=== PATIENT | female | born 1930 | race Caucasian/White ===

== ENCOUNTER 2018-06-30 10:51 | Emergency (ER) | payer BC, OTHER ==
[2018-06-30 11:55] LABS: PLATELET COUNT 243 10^3/uL (150-400)
--- NOTE | 2018-06-30 12:00 | EDPHY ---
H & P Stated Complaint: Painful hematuria x 1 wk, no Hx, low appetite. - Personal History Current Tetanus/Diphtheria Vaccine: Unsure - Medical/Surgical History Hx Asthma: No Hx Chronic Respiratory Disease: No Hx Diabetes: No Hx Cardiac Disease: No Hx Renal Disease: No Hx Cirrhosis: No Hx Alcoholism: No Hx HIV/AIDS: No Hx Splenectomy or Spleen Trauma: No Other PMH: Femur/pelvis Fx c hardware, colostomy, angioplasty x1 stent. 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 Patient arrived in [place] 2 weeks ago and for the past 2 weeks has been experiencing fever, abdominal pain, intermittent confusion, increased frequency, dysuria, hematuria. 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 Cardiac stenting. No anticoagulant use. SOCIAL HISTORY: Nonsmoker. Visiting from [place], in the area indefinitely living with family PHYSICAL EXAM (Prior to examination, patient consented to physical exam, hands were washed and my usual and customary physical exam procedures followed) 1) GENERAL: Well-developed, well-nourished, alert and oriented. Appears nontoxic 2) HEAD: Normocephalic, atraumatic 3) HEENT: Pupils equal, round, reactive to light bilaterally. Sclera anicteric. Nasopharynx, oropharynx, clear, no lesions. Dry mucous membranes. 4) NECK: Full range of motion, no meningeal signs. 5) LUNGS: Clear auscultation bilaterally, no wheezes, no rhonchi, no retractions. 6) HEART: Regular rate and rhythm, no murmur, no heave, no gallop. 7) ABDOMEN: Colostomy patent. Tender to palpation left lower quadrant. 8) MUSCULOSKELETAL: Moving all extremities, no focal areas of tenderness, no obvious trauma. No peripheral edema or discoloration. 9) BACK: No CVA tenderness, no midline vertebral tenderness, no fluctuance, no step-off, no obvious trauma, no visual or palpable abnormality. 10) SKIN: No rash, no petechiae. 11) Psychiatric: Patient is oriented X 3, there is no agitation. 12) (with female cooling tower technician Elsy at bedside): Normal female external genitalia and no signs of trauma or cellulitis, no irritation. DIFFERENTIAL DIAGNOSIS: In no particular order including but not limited to diverticulitis, nephrolithiasis, pyelonephritis (Ilya Bernardo Janneth) Constitutional: Initial Vital Signs Temperature (C) 36.7 C 06/30/18 10:57 Heart Rate 54 L 06/30/18 10:57 Respiratory Rate 18 06/30/18 10:57 Blood Pressure 168/71 H 06/30/18 10:57 O2 Sat (%) 98 06/30/18 10:57 O2 Delivery Mode Room Air Allergies/Adverse Reactions: Sulfa (Sulfonamide Antibiotics) Allergy (Verified 06/30/18 10:56) Home Medications: Medication Instructions Recorded Acetaminophen [Tylenol 325mg (*)] 650 mg PO Q4HRS PRN tab 06/30/18 Fenofibrate,Micronized 134 mg PO DAILY 06/30/18 [Fenofibrate] Metoprolol Tartrate [Lopressor 50 50 mg PO BID 06/30/18 mg (*)] Multivitamins [Multivitamin (*)] 1 each PO DAILY 06/30/18 Simvastatin [Zocor] 40 mg PO HS 06/30/18 Medical Decision Making - Diagnostics Imaging Results: Imaging Impressions Abdomen CT 06/30/18 12:18 Impression: 1. No obstructing ureteral calculus, CT evidence of pyelonephritis or perinephric fluid collection. 2. Right nephrolithiasis and numerous bladder calculi. 3. Mild biliary dilation is likely the patient's postcholecystectomy state. 4. Bowel pattern and right abdominal colostomy are within normal limit. 5. No localized acute intra-abdominal inflammatory process. Findings discussed with Emergency Department physician, Liam Bernardo PA-C on June 30, 2018 at 1310 hours. Images reviewed myself (Ilya Bernardo Janneth) ED Course/Re-evaluation: I did not see this patient while she was in the emergency department. However her care was discussed with the PA while the patient was in the department. I agree with treatment plan management (Wyatt Simental) Patient was re-examined with serial examinations the ER. CT imaging was performed given location of her pain to evaluate for acute surgical abdominal pathology. Subsequently the CT was read out as showing multiple bladder calculi with no evidence of obstruction. The patient remains complaining of abdominal pain. Family expresses there discomfort being discharged home. Will plan on admission to hospitalist service for abdominal pain, bladder calculi, will plan on consultation with Urology given her multiple bladder calculi as well. 1:51 p.m.: Consultation with Julieth hospitalist admit to Dr. Mayer 2 pm: Consultation with urology Dr Dayo Arce who agrees to consult 3:46 p.m.: Informed at this time that after patient had been evaluated by the urology PA Ariela Emerson and hospitalist service Dr. Natasha Mayer the patient has decided to leave. Patient was previously told that she may follow up with Dr. Jeremiah Rosenthal and she has been given this referral information. ( Ilya Bernardo) - Data Points Laboratory Results: Laboratory Results 06/30/18 11:42 06/30/18 11:42 06/30/18 06/30/18 06/30/18 12:31 11:49 11:42 WBC RBC Hgb POC Hgb 16.0 gm/dL gm/dL (12.6-16.3) Hct POC Hct 47 % % (38-47) MCV MCH MCHC RDW Plt Count MPV Neut % (Auto) Lymph % (Auto) [place] % (Auto) Eos % (Auto) Baso % (Auto) Nucleat RBC Rel Count Absolute Neuts (auto) Absolute Lymphs (auto) Absolute Monos (auto) Absolute Eos (auto) Absolute Basos (auto) Absolute Nucleated RBC Immature Gran % Immature Gran # POC Sodium 142 mEq/L mEq/L (135-145) Sodium 140 mEq/L mEq/L (135-145) POC Potassium 4.3 mEq/L mEq/L (3.3-5.0) Potassium 4.8 mEq/L mEq/L (3.3-5.0) POC Chloride 107 mEq/L mEq/L (97-110) Chloride 106 mEq/L mEq/L (97-110) Carbon Dioxide 24 mEq/l mEq/l (22-31) Anion Gap 10 mEq/L mEq/L (6-14) POC BUN 23 mg/dL mg/dL (7-23) BUN 21 mg/dL mg/dL (7-23) Creatinine 0.9 mg/dL mg/dL (0.6-1.0) POC Creatinine 0.9 mg/dL mg/dL (0.6-1.0) Estimated GFR 59 Glucose 75 mg/dL mg/dL (70-100) POC Glucose 76 mg/dL mg/dL (70-100) Calcium 10.2 mg/dL mg/dL (8.5-10.4) Total Bilirubin 0.6 mg/dL mg/dL (0.1-1.4) Conjugated Bilirubin 0.2 mg/dL mg/dL (0.0-0.5) Unconjugated Bilirubin 0.4 mg/dL mg/dL (0.0-1.1) AST 38 IU/L IU/L (14-46) ALT 25 IU/L IU/L (9-52) Alkaline Phosphatase 79 IU/L IU/L (38-126) Total Protein 7.4 g/dL g/dL (6.3-8.2) Albumin 4.2 g/dL g/dL (3.5-5.0) Lipase 116 IU/L IU/L (23-300) Urine Color YELLOW Urine Appearance HAZY Urine pH 5.0 (5.0-7.5) Ur Specific [place] 1.017 (1.002-1.030) Urine Protein NEGATIVE (NEGATIVE) Urine Ketones NEGATIVE (NEGATIVE) Urine Blood NEGATIVE (NEGATIVE) Urine Nitrate NEGATIVE (NEGATIVE) Urine Bilirubin NEGATIVE (NEGATIVE) Urine Urobilinogen NEGATIVE EU EU (0.2-1.0) Ur Leukocyte Esterase NEGATIVE (NEGATIVE) Urine RBC 1-3 /hpf /hpf (0-3) Urine WBC 1-3 /hpf /hpf (0-3) Ur Epithelial Cells TRACE /lpf /lpf (NONE-1+) Hyaline Casts 5-15 /lpf /lpf (0-1) Urine Mucus TRACE /lpf /lpf (NONE-1+) Urine Glucose NEGATIVE (NEGATIVE) 06/30/18 11:42 WBC 6.94 10^3/uL 10^3/uL (3.80-9.50) RBC 5.03 10^6/uL 10^6/uL (4.18-5.33) Hgb 14.8 g/dL g/dL (12.6-16.3) POC Hgb Hct 45.5 % % (38.0-47.0) POC Hct MCV 90.5 fL fL (81.5-99.8) MCH 29.4 pg pg (27.9-34.1) MCHC 32.5 g/dL g/dL (32.4-36.7) RDW 13.9 % % (11.5-15.2) Plt Count 243 10^3/uL 10^3/uL (150-400) MPV 11.1 fL fL (8.7-11.7) Neut % (Auto) 63.3 % % (39.3-74.2) Lymph % (Auto) 28.1 % % (15.0-45.0) [place] % (Auto) 8.1 % % (4.5-13.0) Eos % (Auto) 0.1 % L % (0.6-7.6) Baso % (Auto) 0.1 % L % (0.3-1.7) Nucleat RBC Rel Count 0.0 % % (0.0-0.2) Absolute Neuts (auto) 4.39 10^3/uL 10^3/uL (1.70-6.50) Absolute Lymphs (auto) 1.95 10^3/uL 10^3/uL (1.00-3.00) Absolute Monos (auto) 0.56 10^3/uL 10^3/uL (0.30-0.80) Absolute Eos (auto) 0.01 10^3/uL L 10^3/uL (0.03-0.40) Absolute Basos (auto) 0.01 10^3/uL L 10^3/uL (0.02-0.10) Absolute Nucleated RBC 0.00 10^3/uL 10^3/uL (0-0.01) Immature Gran % 0.3 % % (0.0-1.1) Immature Gran # 0.02 10^3/uL 10^3/uL (0.00-0.10) POC Sodium Sodium POC Potassium Potassium POC Chloride Chloride Carbon Dioxide Anion Gap POC BUN BUN Creatinine POC Creatinine Estimated GFR Glucose POC Glucose Calcium Total Bilirubin Conjugated Bilirubin Unconjugated Bilirubin AST ALT Alkaline Phosphatase Total Protein Albumin Lipase Urine Color Urine Appearance Urine pH Ur Specific [place] Urine Protein Urine Ketones Urine Blood Urine Nitrate Urine Bilirubin Urine Urobilinogen Ur Leukocyte Esterase Urine RBC Urine WBC Ur Epithelial Cells Hyaline Casts Urine Mucus Urine Glucose Medications Given: Discontinued Medications Fentanyl (Sublimaze) 50 mcg IVP EDNOW ONE Stop: 06/30/18 12:34 Last Admin: 06/30/18 13:05 Dose: 50 mcg Ondansetron HCl (Zofran) 4 mg IVP EDNOW ONE Stop: 06/30/18 13:05 Last Admin: 06/30/18 13:05 Dose: 4 mg Point of Care Test Results: Chemistry 06/30/18 11:49 POC Sodium 142 mEq/L mEq/L (135-145) POC Potassium 4.3 mEq/L mEq/L (3.3-5.0) POC Chloride 107 mEq/L mEq/L (97-110) POC BUN 23 mg/dL mg/dL (7-23) POC Creatinine 0.9 mg/dL mg/dL (0.6-1.0) POC Glucose 76 mg/dL mg/dL (70-100) ISTAT H&H 06/30/18 11:49 POC Hgb 16.0 gm/dL gm/dL (12.6-16.3) POC Hct 47 % % (38-47) Departure - Departure Disposition: [facility] Inpatient Acute Clinical Impression: Bladder calculi Condition: Fair
[2018-06-30] MEDS ORDERED: IOPAMIDOL (ISOVUE-300) 100 ML BTL ONE (12:24)
[2018-06-30] MEDS ORDERED: fentaNYL 100 MCG/2 ML INJ IVP ONE (12:33)
[2018-06-30] MEDS ORDERED: ONDANSETRON 4 MG/2 ML VIAL ONE (13:00)
[2018-06-30] MEDS ORDERED: ONDANSETRON 4 MG/2 ML VIAL IVP ONE (13:04)
[2018-06-30] MEDS ORDERED: ACETAMINOPHEN 325 MG TAB PO PRN (14:29)
[2018-06-30] MEDS ORDERED: ONDANSETRON 4 MG/2 ML VIAL IVP PRN (14:29)
[2018-06-30] MEDS ORDERED: ONDANSETRON DISINTEGRATING 4 MG TAB PO PRN (14:29)
[2018-06-30 15:55] VITALS: BP 118/47
--- NOTE | 2018-06-30 16:10 | GDS ---
Please see full H and P for assessment and plan full A&P, discharge plan. Patient and family declined admission. /[id number]/MODL MTDD
--- NOTE | 2018-06-30 16:30 | GCON ---
DATE OF CONSULTATION: 06/30/2018 REASON FOR CONSULT: Abdominal pain, bladder stones. HISTORY OF PRESENT ILLNESS: 88-year-old female who was seen in our office on June 22, evaluated for bladder stones, found to have them. She was having symptoms and was to be set up for surgery. However, she is visiting from [place]. Her insurance company has stated that they will only cover h er in [place]. This was discussed with the patient and they at that point elected to pursue care in her home state rather than [id number] here. However, the daughter reports that the patient was having more abdominal pain, passing blood in her urine and clots, and a temperature of 101, and she b rought her into the emergency room. Denying chills, nausea, or vomiting. PAST MEDICAL HISTORY: Chronic cystitis, bladder stones, colitis, diabetes mellitus, heart disease, h igh cholesterol, urethral stricture. MEDICATIONS: Fenofibrate, metformin, metoprolol, simvastatin. ALLERGIES: Sulfa. PAST SURGICAL HISTORY: Colectomy for cystitis, ORIF, angioplasty. SOCIAL HISTORY: Current alcohol use. Children, daughter, and granddaughter in room. Denies illicit drug use. Homemaker. Lives in [place], visiting here. Former tobacco smoker. She is a . S he had a CT scan done at the hospital that shows air in her colostomy bag along with multiple small b ladder stones. PHYSICAL EXAM: VITAL SIGNS: 129/62 blood pressure, heart rate 65, respiratory rate 16, O2 94 on sarah ebth m air, temperature 36.7. GENERAL: This is a well-developed, well-nourished female, in no acute dist ress. HEENT: Normocephalic, atraumatic. Extraocular movements intact. NECK: Supple. No lymphade nopathy. Trachea midline. RESPIRATORY: No accessory respiratory muscle use. CARDIAC: Regular rat e and rhythm. No lower extremity edema. No obvious JVD. ABDOMEN: Soft, nondistended. Diffusely t phani to palpation. Ostomy bag in place. : No CVA tenderness. Diffuse suprapubic tenderness. D iffuse tenderness on vaginal exam without obvious lesions or masses. INTEGUMENT: No obvious rashes or lesions. MUSCULOSKELETAL: Patient is examined while supine, moving upper extremities without dif ficulty. NEUROLOGIC: Alert, oriented. Affect appropriate to situation. LABORATORY DATA: White blood cell count is 6.94, hemoglobin 14.8, hematocrit 45.5, platelets 243. C hemistry: Sodium 140, potassium 4.8, chloride 106, carbon dioxide 24, anion gap 10, BUN 21, creatini ne 0.9, glucose 75, calcium 10.2. Her urinalysis is totally negative for everything. Microbiology i s pending on her, along with blood cultures. She also had a cystoscopy done in our office by Dr. Dipika sherwood on 06/22/2018, that showed multiple bladder calculi, largest was about 1 to 1.5 cm in diameter, a long with stenosed urethra. CT scan and cystoscopy done on 06/22/2018, in our office reviewed as men tioned. ASSESSMENT AND PLAN: Bladder stones, diffuse bladder and vaginal pain. Unfortunately, this patient has an insurance plan that has specifically told us she is not covered for care out of the [facility]. We have offered patient care regardless of insurance and this has been declined in the offi ce. At this point, we recommend patient pursue outpatient cystoscopy for removal of bladder stones w rajendra Rosenthal feels may be feasible in the office for this nonemergent issue in this otherwise stabl e appearing patient. /[id number]/MODL
--- NOTE | 2018-06-30 16:35 | GHP ---
DATE OF ADMISSION: 06/30/2018 CHIEF COMPLAINT: Fever, abdominal pain, hematuria. HISTORY OF PRESENT ILLNESS: An 88-year-old female accompanied by her daughter and granddaughter with history of colectomy with colostomy on hospitalization in March 2018 at [facility] in [place] for kidney stones and pyelonephritis. She arrived 2 weeks ago in [place] and has been having suprapubic pain, hematuria, and fever. Had a fever up to 101. She has been passing clots. She reports a new cough with yellow sputum. She has had a decreased p.o. intake. Has lost 11 pounds in the last couple weeks. She still is getting around. She was seen at [facility] this week, but given [id number] insurance, they were not able to intervene. REVIEW OF SYSTEMS: I completed a 10-point review of systems, negative except as noted in HPI. PAST MEDICAL HISTORY: Coronary disease, status post balloon angioplasty 30 years ago, colitis with a history of colectomy, CKD with creatinine 1.[address] [facility] records. PAST SURGICAL HISTORY: Cholecystectomy, colectomy. SOCIAL HISTORY: Lives in [place], visiting her daughter and granddaughter. She quit smoking 30 years ago. No alcohol. FAMILY HISTORY: Noncontributory. HOME MEDICATIONS: Fenofibrate, multivitamin, metoprolol, simvastatin, aspirin. ALLERGIES: Sulfa. PHYSICAL EXAMINATION: VITAL SIGNS: Temperature 36.7. Blood pressure is 168/71 , repeat 129/82, heart rate in the 60s, respirations 16, 94% on room air. GENERAL: She is in no acute distress, mildly fatigued. HEENT: PERRLA. Moist mucous membranes. CV: Regular rate and rhythm. LUNGS: Clear. ABDOMEN: Soft , nontender, nondistended. Colostomy in place. : Mild bladder distention. No significant pain with palpation. No [place]. MUSCULOSKELETAL: 5/5 upper and lower extremity strength. NEUROLOGICAL: 2 through 12 intact. PSYCH: Alert oriented x3. LABORATORY: UA is negative. Sodium 142, potassium 4.3, chloride 107, carbon dioxide 23, creatinine 0.9, glucose is 76. WBC 6, hemoglobin 14, hematocrit 45 , platelets 243. IMAGING: Abdominal CT: No obstructing ureteral calculus. No evidence of pyelonephritis. Right kidney stone and number of bladder calculi. Mild biliary dilatation, status post cholecystectomy. ASSESSMENT AND PLAN: 1. Fever: UA is negative. She does endorse new cough with yellow sputum. I offered checking a respiratory panel as well as a chest x-ray but patient and daughter refused. They said she did not have pneumonia. 2. Lower abdominal pain: There is evidence of calculus in the kidney and bladder but none obstructing. Ariela Emerson PA-C, with [facility] evaluated patient. Given her [id number] insurance, this would be treated as an outpatient. She is hemodynamically stable. H and H are stable. 3. Hematuria, again secondary to likely stones. Again, H and H are stable. Recommend holding aspirin with hematuria. 4. Coronary artery disease. Resume beta red and statin. 5. History of colitis, s/p colectomy. DISPOSITION: Patient is stable for discharge home with her family as they did not want further evaluation for pneumonia or viral infection. MEDICATIONS: Hold aspirin. FOLLOWUP: 1. With her primary care physician in [place]. 2. Needs referral for urology. /[id number]/MODL MTDD
[2018-06-30] MEDS ORDERED: METOPROLOL TARTRATE 50 MG TAB PO SCH (21:00)
[2018-06-30] MEDS ORDERED: NON-FORMULARY NEW DRUG (Simvastatin [Zocor] 40 MG) PO SCH (21:00)
[2018-07-01] MEDS ORDERED: ENOXAPARIN 40 MG/0.4 ML SYR SC SCH (09:00)
[2018-07-01] MEDS ORDERED: NON-FORMULARY NEW DRUG (Fenofibrate,Micronized [Fenofibrate] 134 MG) PO SCH (09:00)
[2018-07-01] MEDS ORDERED: MULTIVITAMINS 1 EACH TAB PO SCH (09:00)
[2018-07-01] MEDS ORDERED: ASPIRIN EC 81 MG TAB PO SCH (09:00)
== END 2018-06-30 15:54 | disposition still patient (30) ==
LOC: UNDOADMOB 13:50
DX: N21.0 Calculus in bladder (principal); N20.0 Calculus of kidney; Z93.3 Colostomy status
CPT/HCPCS: 74177; 96374; 96375; 99285; J2405; J3010; Q9967; 82435-PO; 82565-PO; 82947-PO; 84132-PO; 84295-PO; 84520-PO; 85014-PO; J1650